=== PATIENT | male | born 1975 | race Two or more races ===

== ENCOUNTER 2021-10-30 18:06 | Emergency (ER) | payer BC ==
[2021-10-30 18:18] VITALS: BP 139/91; PULSE 78; TEMP 97.8; BMI 25.1
[2021-10-30] MEDS ORDERED: DIPHTH,PERTUSS(ACELL),TET 0.5 ML DISP.SYRIN IM ONE ×2 (19:18)
[2021-10-30] MEDS ORDERED: IBUPROFEN 600 MG TABLET (FP) PO ONE ×2 (19:18)
== END 2021-10-30 20:49 | disposition home or self-care (01) ==
LOC: JERFT 18:06
PROC: 3E0234Z Introduction of Serum, Toxoid and Vaccine into Muscle, Percutaneous Approach (ICD-10-PCS; principal; 2021-10-30)
DX: S01.412A Laceration without foreign body of left cheek and temporomandibular area, initial encounter (principal); M79.605 Pain in left leg
CPT/HCPCS: 90715; 99284-25; C9803; U0003; U0005